=== PATIENT | male | born 2000 | race American Indian/Alaskan Native ===

== ENCOUNTER 2021-01-24 20:09 | Emergency (ER) | payer SELFPAY ==
--- NOTE | 2021-01-24 21:18 | Emergency Department Report ---
Chief Complaint: Urogenital-Male Stated Complaint: PAIN IN PRIVATE AREA - HPI History of Present Illness: 20-year-old -[place]onegas[place] male presents to the emergency room complaining of burning with urination for 3 days. Patient denies any penile discharge. He states that he wants to get STD tested and wants to know how long is going to take for his results. Patient denies any nausea no vomiting no pelvic pain no testicular pain no testicular swelling no fever no chills. Patient does admit to unprotected intercourse. - Exam Vital Signs: Vital Signs 01/24/21 20:53 Temperature 99.2 F Physical Exam: General: Awake, appropriately interactive, no acute distress. Neck: Supple. Full range of motion intact. Cardiovascular: Normal peripheral perfusion. Pulmonary: No respiratory distress. Patient is speaking normally without use of accessory muscles. Skin: No apparent rashes or lesions. Neurological: No facial asymmetry. Speech is clear. Follows commands. Patient is alert and oriented. Musculoskeletal: Full range of motion, no crepitus. Able to bear weight and ambulate without difficulty. Distal neurovascular and motor/sensory function is intact. Psych: Cooperative. Appropriate mood and affect. MSE screening note: Focused history and physical exam performed. Due to findings the following was ordered: 20-year-old -[place] male presents to the emergency room complaining of burning with urination for 3 days. Patient denies any penile discharge. He states that he wants to get STD tested and wants to know how long is going to take for his results. Patient denies any nausea no vomiting no pelvic pain no testicular pain no testicular swelling no fever no chills. Patient does admit to unprotected intercourse. Mariann with patient he can follow-[facility] in the morning [facility] 830 [facility] to get a full STD evaluation. Patient verbalized understanding. ED Disposition for MSE Condition: Stable
[2021-01-24 21:22] VITALS: BP 122/57
== END 2021-01-24 21:02 | disposition left against medical advice (07) ==
LOC: ED 20:09
DX: R30.9 Painful micturition, unspecified (principal)
CPT/HCPCS: 99282